=== PATIENT | male | born 2000 | race Caucasian/White ===

== ENCOUNTER 2018-03-06 21:01 | Emergency (ER) | payer OTHER ==
[~2018-03-06] VITALS: Ht 175.3 cm; Wt 87.1 kg
[~2018-03-06 21:01] MED LIST: AMOX250CH PO; CEPH250A PO; CEPH250SUA PO; CEPH500 PO; HYDHCL10EL PO; MULTCH; TYLENOL PRN FEVER
[2018-03-06] MEDS ORDERED: Prednisone20 MG PO (21:30)
== END 2018-03-06 21:29 | disposition home or self-care (01) ==
LOC: ER 21:01
DX: L23.7 Allergic contact dermatitis due to plants, except food (principal)
CPT/HCPCS: 99283; Q0163

== ENCOUNTER 2018-06-12 18:47 | Emergency (ER) | payer OTHER ==
[~2018-06-12] VITALS: Ht 175.3 cm; Wt 90.7 kg
[~2018-06-12 18:47] MED LIST changes: +Prednisone20 MG PO; +Triamcinolone A15 G3 TOP
[2018-06-12] MEDS ORDERED: Bactrim Ds Tab1 EACH PO (19:45)
[2018-06-12] MEDS ORDERED: CEPH500 PO (19:45)
== END 2018-06-12 19:48 | disposition home or self-care (01) ==
LOC: ER 18:47
DX: L02.413 Cutaneous abscess of right upper limb (principal); L03.113 Cellulitis of right upper limb
CPT/HCPCS: 10060; 99282-25

== ENCOUNTER 2020-02-17 15:06 | Emergency (ER) | payer SELFPAY ==
[~2020-02-17] VITALS: Ht 175.3 cm; Wt 79.4 kg
[~2020-02-17 15:06] MED LIST changes: +BENZ100A PO; +Bactrim Ds Tab1 EACH PO; +Naprosyn500 MG PO
[2020-02-17 15:45] LABS: Source, Urine Clean Catch
[2020-02-17 15:49] LABS: BASOPHILS ABSOLUTE AUTO 0.04 K/mm3 (0.00-0.23); BASOPHILS PERCENT AUTO 0 % (0-2); EOSINOPHILS ABSOLUTE AUTO 0.21 K/mm3 (0.00-0.68); EOSINOPHILS PERCENT AUTO 2 % (0-6); Hematocrit 50.4 % (37.0-53.0); Hemoglobin 16.5 g/dL (13.5-17.5); IMMATURE GRAN ABSOLUTE AUTO 0.05 K/mm3 (0.00-0.10); IMMATURE GRAN PERCENT AUTO 0 % (0-1); LYMPHOCYTES PERCENT AUTO 17 % (21-46); MONOCYTES ABSOLUTE AUTO 1.01 K/mm3 (0.16-1.47); MONOCYTES PERCENT AUTO 9 % (4-13); Mean Corpuscular HGB 29.3 pg (26.0-34.0); Mean Corpuscular HGB Conc 32.7 g/dL (31.5-36.5); Mean Corpuscular Volume 89 fL (80-100); Mean Platelet Volume 9.5 fL (9.1-12.4); NEUTROPHILS ABSOLUTE AUTO 8.19 K/mm3 (1.96-9.15); NEUTROPHILS PERCENT AUTO 71 % (41-73); Platelet Count 391 K/mm3 (150-400); RDW Coefficient Variation 13.4 % (11.7-14.2); RDW Standard Deviation 43.7 fL (35.1-46.3); Red Blood Cell Count 5.64 M/mm3 (4.30-5.90)
[2020-02-17 15:49] LABS: Bilirubin, Urine Neg (Neg); Blood, Urine Neg (Neg); Glucose Qualitative, Urine Neg (Neg); Ketones, Urine 1+ (Neg); Leukocyte Esterase, Urine Neg (Neg); Nitrite, Urine Neg (Neg); Protein, Urine 1+ (Neg); Specific Gravity, Urine 1.025 (1.003-1.022); Urobilinogen, Urine 1+ (Normal)
[2020-02-17 15:50] LABS: Appearance, Urine Clear (Clear); Color, Urine Yellow (P-Yellow)
[2020-02-17 16:17] LABS: Alanine Aminotransfer (ALT/SGP 26 U/L (12-78); Albumin, Blood 3.9 g/dL (3.4-5.0); Albumin/Globulin Ratio 0.8 (0.8-1.8); Alk Phos 100 U/L (50-136); Anion Gap 10 mmol/L (6-16); Aspartate Aminotrans (AST/SGOT 24 U/L (12-37); Bilirubin, Total 0.3 mg/dL (0.1-1.0); Blood Urea Nitrogen 7 mg/dL (8-24); Bun/Creatinine Ratio 8.5 (12.0-20.0); CO2, Blood 20 mmol/L (21-32); Calcium, Blood 9.5 mg/dL (8.5-10.1); Chloride, Blood 110 mmol/L (98-108); Creatinine, Blood 0.82 mg/dL (0.60-1.20); Globulin, Blood 5.2 g/dL (2.2-4.0); Glomerular Filtration Rate >60 (60-); Glucose, Blood 84 mg/dL (70-99); Potassium, Blood 4.1 mmol/L (3.5-5.5); Sodium, Blood 140 mmol/L (136-145); Total Protein, Blood 9.1 g/dL (6.4-8.2)
[2020-02-17 16:28] LABS: Troponin I <0.015 ng/mL (0.000-0.040)
[2020-02-17] MEDS ORDERED: ONDA4ODT SL (16:51)
[2020-02-17] MEDS ORDERED: PEPCID40 MG PO (16:51)
[2020-02-17] MEDS ORDERED: ACETAMINOPHEN500 MG PO (16:51)
== END 2020-02-17 18:15 | disposition home or self-care (01) ==
LOC: ER 15:06
PROVIDERS: Emergency Medicine
DX: G56.01 Carpal tunnel syndrome, right upper limb (principal); R10.9 Unspecified abdominal pain; R63.0 Anorexia
CPT/HCPCS: 36415; 80053; 83690; 84443; 84484; 85025; 96374-59; 99283-25; J2405

== ENCOUNTER → 2021-11-16 | Outpatient (CLI) | payer OTHER ==
[~2021-11-16] MED LIST changes: +ACETAMINOPHEN500 MG PO; +IBUP400 PO; +ONDA4ODT SL; +PEPCID40 MG PO; +Veetids 500500 MG PO
[2021-11-18 18:10] LABS: CHLAMYDIA BY NAA Negative (Negative); GONOCOCCUS BY NAA Negative (Negative); TRICH VAG BY NAA Negative (Negative)
== END | disposition home or self-care (01) ==
LOC: LAB SHORT 12:33
PROVIDERS: Physician Assistant
DX: Z20.2 Contact with and (suspected) exposure to infections with a predominantly sexual mode of transmission (principal)
CPT/HCPCS: 87491; 87591; 87661